=== PATIENT | male | born 1970 | race Caucasian/White ===

== ENCOUNTER → 2024-08-06 09:51 | Outpatient (REF) | payer BC, SELFPAY | LOC: EMG 09:51 | PROVIDERS: ATTENDING PHYSICIAN Orthopaedic Surgery Hand Surgery; FAMILY PHYSICIAN Internal Medicine | DX: M25.522 Pain in left elbow (principal); R20.0 Anesthesia of skin | CPT/HCPCS: 95886; 95909 ==